=== PATIENT | female | born 1985 | race Caucasian/White ===

== ENCOUNTER 2017-05-28 08:49 | Inpatient (IN) | payer OTHER ==
[~2017-05-28] VITALS: Ht 165.1 cm; Wt 93.5 kg
[2017-05-28] MEDS ORDERED: LACTATED RINGER'S 1000ML 1,000 ML IV PRN (09:24)
[2017-05-28] MEDS ORDERED: LACTATED RINGER'S 1000ML 1,000 ML IV SCH ×2 (09:24→10:49)
--- NOTE | 2017-05-28 09:28 | Progress Note ---
Progress Note Date of Service May 28, 2017. Progress Note Admit Note 31 F P1001 at 40.3 weeks admitted in active labor. Cervix is 5-6/80/-2/soft/ posterior/intact/vertex. GBS is negative. FHT CAt 1. Will admit in labor patient requesting epidural.
[2017-05-28] MEDS ORDERED: EpHEDrine SULFATE INJ 50 MG/ML AMP ONE (09:33)
[2017-05-28] MEDS ORDERED: BUPIVACAINE 0.25% 30 ML VIAL ONE (09:33)
[2017-05-28] MEDS ORDERED: FENTANYL CITRATE INJ 50 MCG/1 ML 2 ML VIAL ONE (09:34)
[2017-05-28] MEDS ORDERED: FENTANYL 2MCG/ML ROPIV 1.25MG/ML 100ML BAG EPI ONE (09:35)
[2017-05-28] MEDS ORDERED: PRENCAP38 PO (09:53)
[2017-05-28] MEDS ORDERED: AMOX500C3 PO (09:54)
[2017-05-28 09:57] VITALS: Ht 165.1 cm; Wt 93.5 kg
[2017-05-28 10:18] LABS: HEMATOCRIT 37.5 % (37-47); MEAN CELL VOLUME 82.6 fL (80-100); MEAN CORPUSCULAR HEMOGLOBIN 28.6 pg (25-34); MEAN CORPUSCULAR HGB CONC 34.7 g/dl (32-36); MEAN PLATELET VOLUME 11.7 fL (7.4-10.4); PLATELET COUNT 156 K/uL (130-400); RED CELL DISTRIBUTION WIDTH CV 13.8 % (11.5-14.5); RED CELL DISTRIBUTION WIDTH SD 41.6 fL (36.4-46.3); WHITE BLOOD COUNT 13.15 K/uL (4.8-10.8)
[2017-05-28] MEDS ORDERED: OXYTOCIN 30 UNITS/500ML NSS IV ONE (10:34)
--- NOTE | 2017-05-28 10:47 | Progress Note ---
Progress Note Date of Service May 28, 2017. Progress Note Delivery Summary Patient of Dr Kim. I was called to the room for imminent delivery, as Dr Kim was in the OR recovery area downstairs caring acutely for another patient. Upon my entry into the room, patient was actively pushing with the baby on the perineum. Patient laboring without epidural. After one push, the head delivered in DIA position, no nuchal was noted, then anterior shoulder followed by posterior shoulder, followed by body delivered. Baby placed on mother's abdomen , spontaneous cry was heard. Delayed cord clamping was employed, after 1 minute and no pulse in cord, cord was doubly clamped and cut. At this time, Dr Kim arrived for delivery of placenta and I left the room. EBL 100ml during my portion of delivery, please see Dr Kmi's notes for total EBL. No complications with delivery. Patient and baby tolerated well. Please see Dr Kim's notes for further information.
[2017-05-28] MEDS ORDERED: OXYTOCIN 30 UNITS/500ML NSS IV PRN (11:00)
[2017-05-28] MEDS ORDERED: MEASLES, MUMPS & RUBELLA VIRUS VIAL SQ. ONE (11:00)
[2017-05-28] MEDS ORDERED: BENZOCAINE 20% AER SPR 82.5 GM CAN EXT PRN (11:00)
[2017-05-28] MEDS ORDERED: HYDROCORTISONE ACETATE 25 MG SUPP PR PRN (11:00)
[2017-05-28] MEDS ORDERED: ACETAMINOPHEN 325 MG TAB PO PRN (11:00)
[2017-05-28] MEDS ORDERED: LANOLIN OINT EXT PRN (11:00)
[2017-05-28] MEDS ORDERED: DIPHTHERIA/TETANUS/PERTUSSIS 0.5 ML SYR/VIAL IM. ONE (11:00)
[2017-05-28] MEDS ORDERED: SUPERCREAM 0.870 % 15GM JAR EXT PRN (11:00)
--- NOTE | 2017-05-28 11:30 | Vaginal Delivery Summary ---
Vaginal Delivery Summary Delivery Note (continued) I came in to the room and baby just delivered. I delivered the placenta spontaneously and intact. No tears. Total EBL 200 ml. Final sponge and instrument count are correct. Mom and baby stable.
[2017-05-28 14:10] VITALS: BP 145/64; PULSE 73; TEMP 36.8
[2017-05-28 16:15] VITALS: BP 145/76; PULSE 67; TEMP 37; O2SAT 96
[2017-05-28] MEDS: AMOXICILLIN 500 MG CAP PO SCH (20:01)
[2017-05-28 20:30] VITALS: BP 133/72; PULSE 71; TEMP 36.9; O2SAT 97
[2017-05-28] MEDS: IBUPROFEN 600 MG TAB PO PRN (21:30)
[2017-05-28 23:45] VITALS: BP 127/74; PULSE 66; TEMP 36.9
[2017-05-29 04:15] VITALS: BP 127/81; PULSE 68; TEMP 36.4
[2017-05-29 06:50] LABS: HEMATOCRIT 36.3 % (37-47); HEMOGLOBIN 12.3 g/dL (12.0-16.0)
[2017-05-29] MEDS: IBUPROFEN 600 MG TAB PO PRN (07:35)
[2017-05-29 08:00] VITALS: BP 146/86; PULSE 71; TEMP 36.9; O2SAT 96
[2017-05-29] MEDS ORDERED: FERROUS SULFATE 325 MG TAB PO SCH (08:00)
[2017-05-29] MEDS ORDERED: PRENATAL VITAMIN TAB PO SCH (08:00)
[2017-05-29] MEDS: AMOXICILLIN 500 MG CAP PO SCH (08:01)
--- NOTE | 2017-05-29 08:43 | OB/GYN Progress Note ---
POP SINGER Progress Note Date of Service May 29, 2017. Subjective conversation w/ patient, physical exam Ambulation: ambulating normally Voiding: no voiding problems Passing Gas: Yes Diet Tolerance: Regular Diet Lochia: Moderate Feeding Type: Breast Feeding Review of Systems Constitutional: No fever, No chills, No sweats, No weight loss, No weakness, No fatigue, No problem reported Respiratory: No cough, No sputum, No wheezing, No shortness of breath, No dyspnea on exertion, No dyspnea at rest, No hemoptysis, No problem reported Cardiac: No chest pain, No orthopnea, No PND, No edema, No claudication, No palpitations, No problem reported Breast: No see HPI, No breast lump, No change in shape, No nipple discharge, No breast pain, No problem reported Abdomen: No pain, No nausea, No vomiting, No diarrhea, No constipation, No GI bleeding, No problem reported Female : No see HPI, No dysuria, No urinary frequency, No hematuria, No incontinence, No abnormal vaginal bleeding, No vaginal discharge, No problem reported Objective Vital Signs Date Time Temp Pulse Resp B/P (MAP) Pulse Ox O2 Delivery O2 Flow Rate FiO2 05/29/17 08:00 36.9 71 18 146/86 (106) 96 Room Air 05/29/17 07:20 Room Air 05/29/17 04:15 36.4 68 18 127/81 (96) Room Air 05/28/17 23:45 36.9 66 18 127/74 (91) Room Air 05/28/17 23:45 Room Air 05/28/17 20:30 36.9 71 18 133/72 (92) 97 Room Air 05/28/17 16:15 37.0 67 16 145/76 (99) 96 Room Air 05/28/17 16:15 96 Room Air 05/28/17 14:10 Room Air 05/28/17 14:10 36.8 73 20 145/64 (91) Physical Exam General Appearance: WELL-APPEARING, WD/WN, NO APPARENT DISTRESS Respiratory/Chest: chest non-tender, lungs clear, normal breath sounds Cardiovascular: regular rate, rhythm, no edema, no gallop Abdomen: normal bowel sounds, non tender, soft Fundus: Firm Incision Description: Erythema Extremities: normal range of motion, non-tender, normal inspection Laboratory Results Last 24 Hours Test 05/28/17 10:04 05/29/17 06:31 White Blood Count 13.15 K/uL Red Blood Count 4.54 M/uL Hemoglobin 13.0 g/dL 12.3 g/dL Hematocrit 37.5 % 36.3 % Mean Corpuscular Volume 82.6 fL Mean Corpuscular Hemoglobin 28.6 pg Mean Corpuscular Hemoglobin Concent 34.7 g/dl RDW Standard Deviation 41.6 fL RDW Coefficient of Variation 13.8 % Platelet Count 156 K/uL Mean Platelet Volume 11.7 fL Assessment and Plan Day Number: 1 Continue Routine Care: PPD #1 pt doing well no complaints pt wishes to be disch today disch ordered
[2017-05-29 09:35] VITALS: BP 122/76
[2017-05-29] MEDS ORDERED: FRRS300 PO (10:16)
[2017-05-29] MEDS ORDERED: MTR600X PO (10:16)
--- NOTE | 2017-05-29 10:18 | Discharge Instructions ---
Discharge Instructions Date of Service May 29, 2017. Admission Reason for Admission: Labor Check Discharge Discharge Diagnosis / Problem: Discharge Goals Goal(s): Routine recovery after delivery Activity Recommendations Activity Limitations: as noted below ACTIVITY RECOMMENDATIONS: * Gradual return to full activity over the next 2-3 weeks. * No lifting - nothing heavier than baby over the next 2-3 weeks. * Do not engage in vigorous exercise, sexual activity or sports until cleared by your physician. * Do not drive or operate any motorized equipment until cleared by your physician. * You may shower/bathe daily. BREAST CARE: If you are not breast feeding: * Wear a supportive bra 24 hours a day for one to two weeks. * Avoid stimulating your breasts and nipples as much as possible during the first few weeks after delivery. * When taking a shower, have the warm water hit your back, not breasts. * When your breasts feel full, apply ice packs. Usually three to four times a day helps ease the discomfort. * Take a mild pain medication (Tylenol/Motrin) when you are uncomfortable. If breast feeding: * Use breast milk to lubricate nipples. Lansinoh cream may be used for sore nipples. You do not need to remove cream prior to breast feeding. If using a different brand of cream, check the label for directions regarding removal of cream prior to nursing. * Wear a supportive bra. * If having problems with breasts or breast feeding, call a sales and service consultant or your health care provider. EPISIOTOMY CARE: After delivery, if you have an episiotomy (stitches), the following steps will ease discomfort and aid healing. * For the first 24 hours after delivery, place ice packs next to your episiotomy to help reduce swelling. * After the first 24 hour-period, sitz baths, either portable or in the tub, are suggested. A shower with a shower arm sprayed over the episiotomy may be comforting. * Jovana care should be done after each voiding and bowel movement. Squirt warm water from a plastic bottle over the perineum (region of the body between the anus and urinary opening) and pat dry. * Use Dermoplast to ease discomfort. Shake container. Foster directly over the episiotomy. * Place a Tucks on a clean sanitary pad next to your episiotomy. OVER THE COUNTER MEDICATION: * For discomfort or pain, you may use Acetaminophen (Tylenol), Ibuprofen (Advil ), or Naproxen (Aleve) following the package directions. * For constipation you may use Colace following the package directions. SPECIAL CARE INSTRUCTIONS: When you are discharged from the hospital, it is important for you to follow the instructions listed below: * During the first week at home, you should be able to care for yourself and your baby. In addition, the usual light household activities are encouraged. * Limit your activities to the way you feel. Do not try to clean the house or move furniture. Be sensible. * If you actively engage in sports and have done so up until the time of your delivery, you may resume these activities as soon as you feel able. This may take up to one month or even longer. Use good judgment. * Continue to take your vitamins for at least six weeks after the of your baby. * Your diet need not be limited unless you were on a special diet before your delivery. Breast-feeding mothers need around 2500 calories per day and at least 64-80 ounces of fluid per day (8 to 10 glasses). * You should eat foods from the four major food groups. Crash diets or fad diets are to be avoided. Eating lean meats, fresh fruits and vegetables, low-fat dairy products, high fiber foods and a regular exercise program, will help you get back to your pre- weight without putting your health at risk. * Constipation is sometimes a problem after delivery. Take a mild laxative as needed. If breast feeding, Milk of Magnesia is acceptable to use. You may use a suppository or Fleets enema if no episiotomy. * A daily shower or tub bath is suggested. Be sure to thoroughly and gently dry the perineum. * A bloody vaginal discharge will usually continue until around four weeks post . A small amount of bleeding may continue for as long as six weeks. Vaginal discharge changes from the bright red bleeding after delivery to pink then brownish and finally yellowish-pink before becoming white and disappearing. * Bleeding may increase with activity. Your first period may come in 4-8 weeks. If you are breast feeding, your period may be delayed even longer. * Shindler (sex) can begin whenever both you and your partner feel comfortable and do not have any form of genital infection. It is recommended that you wait until after your return appointment and discuss with your physician. If you have questions, please talk to your health care practitioner. A condom should be used to prevent infection and . * Foreplay, gentle intercourse and lubrication is very important the first several times to prevent pain. A water-based lubricant such as K-Y jelly or Astroglide may be used. * Tampons may be used six weeks after delivery. * Douching should be avoided for 6 weeks after delivery. * If you have RH negative blood and your baby is RH positive, you will receive RHOGAM by injection prior to discharge. The nurse will give you a card to keep with you that has the date and place that you received RHOGAM after delivery. * During your care, you had a Rubella screen done to check for the presence of rubella antibodies in your blood. If your test was negative, you will receive a Rubella vaccine prior to discharge. This vaccine may cause a fever, soreness at the injection site and flu-like symptoms. If these symptoms persist, notify your health care practitioner. is not advised for three months after a Rubella vaccine. There is a higher chance of having a baby with defects if conceived within three months of getting the vaccine. * If you were discharged 24 hours from delivery or before 48 hours: Visiting nurses will come to your home 48 hours after discharge to assess you and your baby. The visiting nurse will meet with you while you are in the hospital to arrange a time and get directions to your home. * Verbalizes understanding of car seat law as reviewed with patient nursing. * Car Seat hand-out given and reviewed with patient by nursing. * Shaken baby information reviewed with patient by nursing. Call you doctor if: * Heavy bleeding (saturating several pads an hour) or passing clots the size of your fist. * A fever >101 degrees F (38.3 degrees C) on two occasions four hours apart and/or chills. * Unusual pain in the pelvic or vaginal areas. * "Baby Blues" lasting longer than two weeks. If you have any questions or concerns, call your health care practitioner at . FOLLOW-UP VISIT: * Please call the office at to schedule a 6 week examination. It is important you keep this appointment. * It is important for you to make arrangements for either yearly or twice yearly check-ups thereafter. . Current Hospital Diet Patient's current hospital diet: Regular OB Diet Discharge Diet Recommended Diet: Regular Diet Pending Studies Studies pending at discharge: no Medical Emergencies . Who to Call and When: Medical Emergencies: If at any time you feel your situation is an emergency, please call 911 immediately. . Non-Emergent Contact Non-Emergency issues call your: Specialist . . "Provider Documentation" section prepared by Migue Jensen. .
[2017-05-29 11:20] VITALS: BP_DIAS 76; PULSE 71; TEMP 36.9
== END 2017-05-29 12:38 | disposition home or self-care (01) | DRG 775 ==
LOC: C.LD 08:49 → C.OPB 08:49 → C.LD 09:27 → C.OBG 16:25
PROVIDERS: ADMIT Obstetrics & Gynecology; ATTEND Obstetrics & Gynecology
PROC: 10E0XZZ Delivery of Products of Conception, External Approach (ICD-10-PCS; principal; 2017-05-28)
DX: O80 Encounter for full-term uncomplicated delivery (principal); Z3A.40 40 weeks gestation of pregnancy; Z37.0 Single live birth

== ENCOUNTER 2021-10-01 06:19 | Inpatient (IN) ==
[2021-10-01] MEDS ORDERED: LACTATED RINGER'S 1,000 ML IV PRN (06:39)
[2021-10-01] MEDS ORDERED: OXYTOCIN 30 UNITS/500 ML BAG IV PRN ×2 (06:39→08:58)
[2021-10-01] MEDS ORDERED: BUPIVACAINE 0.25% 30 ML VIAL ONE (07:16)
[2021-10-01] MEDS ORDERED: SODIUM CHLORIDE 0.9% INJ 10 ML VIAL ONE (07:16)
[2021-10-01] MEDS ORDERED: LIDOCAINE 2%/EPINEPHRINE 1:200,000 20 ML SDV ONE (07:16)
[2021-10-01] MEDS ORDERED: ePHEDrine sulfate 50 MG/ML AMP ONE (07:16)
[2021-10-01] MEDS ORDERED: fentaNYL citrate 100 MCG/2 ML VIAL ONE (07:16)
--- NOTE | 2021-10-01 07:16 | History & Physical Report ---
Date of Service October 01, 2021 Assessment & Plan (1) Active labor at term: Plan: 35 yo at 40.2 wks, presenting in active labor, VSS Afebrile GBS negative FHR reassuring COVID testing pending Admit, moitor, labs, epidural if able Anticipate (2) AMA (advanced maternal age) multigravida 35+: (3) Rh negative status during : (4) Obesity affecting in third trimester, antepartum: Admission and Anticipated Discharge Date Admission Date: October 01, 2021 History of Present Illness Primary Care Provider: Blayne Adrian DO Patient is a 35 yo at 40.2 who started to have ctxs around 3:30 am and got closer and painful. She presented to L&D in active labor and asking for epidural. 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 h/o STD's, no h/o HSV/ Chlamydia/ GC Review of Systems as per Subjective / HPI Physical Exam Constitutional: WD/WN, vitals as above well developed, well nourished, + acute distress (with contractions) and + obese Gastrointestinal (Abdomen): normal bowel sounds, soft, nontender, no hepatosplenomegaly (Gravid) Genitourinary: normal external appearance OB Exam Abdomen: + vertex Manual OB Exam: + cervical dilation 8 cm, + cervical effacement 90% and + station 0 OB Exam Monitor Tracing: + external uterine monitor used and + category I bulging bag+ Results & Data ([facility]) Vital Signs (Past 12 Hours) Vital Signs Pulse BP 10/01/21 06:31 71 135/72
[2021-10-01] MEDS ORDERED: fentaNYL 2MCG/ML ROPIVACAINE 1.25MG/ML 100 ML BAG EPI ONE (07:17)
[2021-10-01 07:58] LABS: Hematocrit (blood only) 32.6 % (34.1-44.9); Hemoglobin 10.6 g/dl (12.0-16.0); White Blood Count 11.06 K/ul (4.8-10.8)
[2021-10-01 08:24] LABS: Mean Corpuscular Hemoglobin 25.7 pg (25.0-34.0); Mean Corpuscular Hgb Conc 32.5 g/dL (32.0-36.0); Mean Corpuscular Volume 78.9 fL (80.0-100.0); Mean Platelet Volume 11.6 fL (9.4-12.3); Platelet Count 129 K/uL (130-400); Platelet Estimate Decreased (Normal); RDW Coefficient of Variation 13.2 % (11.5-14.5); RDW Standard Deviation 37.6 fL (36.4-46.3); Red Blood Count 4.13 M/uL (3.93-5.22)
[2021-10-01] MEDS ORDERED: LIDOCAINE 1% LOCAL 20 ML VIAL ONE ×2 (08:24→08:31)
[2021-10-01] MEDS ORDERED: BENZOCAINE 20% AER SPR 82.5 GM CAN EXT PRN (08:58)
[2021-10-01] MEDS ORDERED: MEASLES, MUMPS & RUBELLA VIRUS VIAL SQ ONE (08:58)
[2021-10-01] MEDS ORDERED: ACETAMINOPHEN 325 MG TAB PO PRN (08:58)
[2021-10-01] MEDS ORDERED: HYDROCORTISONE ACETATE 25 MG SUPP PR PRN (08:58)
[2021-10-01] MEDS ORDERED: DIPHTHERIA/TETANUS/PERTUSSIS 0.5 ML SYR/VIAL IM ONE (08:58)
[2021-10-01] MEDS ORDERED: bisacodyL 10 MG SUPP PR PRN (08:58)
--- NOTE | 2021-10-01 09:05 | Delivery Summary ---
Vaginal Delivery Summary Date of Service October 01, 2021 Vaginal Delivery Summary Patient was found to be fully dilated and desired to push. She pushed through 2 contractions and delivered the head that difficulty. The shoulders were delivered with minimal traction and the baby was handed off to the mother by mouth and nose were suctioned, the cord was clamped times and cut at 1 minute delay. Vagina and perineum were checked for lacerations. There was a small second- degree perineal laceration was confirmed with rectal exam and excellent sphincter tone was noted. Patient had short perineum and the laceration was closed to her anal orifice. Allis clamps were used to grasped more tissue/muscles around perineal body to reinforce anal sphincter. [id number] stitches were placed around the clamps x2. The gloves were changed and the rest of the vagina mucosa bulbocavernous muscles were and skin were repaired with 2-0 Vicryl. And it was static. The rest of the vagina and labia were intact. The placenta was found to be the vagina, delivered spontaneously as intact and complete. Uterus was explored and found to be empty, the lower segment was cleared of all clots and debris's. EBL was 200 mL and the fundus was firm. There was repeated, no sutures were felt and excellent sphincter tone was noted. Mom and baby tolerated procedure well. The sponge, needle, and instrument count was correct x2. Baby was a viable female , Apgars were 8/9 and weight is pending. Lung complications happened and I was present during whole procedure.
[2021-10-01] MEDS: IBUPROFEN 600 MG TAB PO PRN ×2 (12:14→18:46)
[2021-10-01] MEDS: DOCUSATE SODIUM 100 MG CAP PO SCH (20:37)
[2021-10-02] MEDS: IBUPROFEN 600 MG TAB PO PRN (04:59)
[2021-10-02 06:57] LABS: Hematocrit (blood only) 31.6 % (34.1-44.9); Hemoglobin 10.2 g/dl (12.0-16.0); Mean Corpuscular Hemoglobin 26.2 pg (25.0-34.0); Mean Corpuscular Hgb Conc 32.3 g/dL (32.0-36.0); Mean Corpuscular Volume 81.2 fL (80.0-100.0); Mean Platelet Volume 11.2 fL (9.4-12.3); Platelet Count 150 K/uL (130-400); RDW Coefficient of Variation 13.3 % (11.5-14.5); RDW Standard Deviation 38.7 fL (36.4-46.3); Red Blood Count 3.89 M/uL (3.93-5.22)
[2021-10-02] MEDS ORDERED: FERROUS SULFATE 325 MG TAB PO SCH (08:00)
[2021-10-02] MEDS ORDERED: PRENATAL VITAMIN 1 TAB PO SCH (08:00)
[2021-10-02] MEDS: DOCUSATE SODIUM 100 MG CAP PO SCH (08:39)
--- NOTE | 2021-10-02 10:02 | Obstetrical Progress Note ---
Date of Service October 02, 2021 Assessment & Plan (1) Normal course: PPD #1 Pt doing well No complaints pt wishes to be discharged home Results & Data ([facility]) Vital Signs (Past 12 Hours) Vital Signs Temp Pulse Resp BP Pulse Ox 10/02/21 08:59 138/79 10/02/21 07:40 37 C 67 18 143/81 H 97 10/02/21 04:50 36.5 C 62 18 133/79 10/02/21 00:50 36.8 C 62 18 137/82
[2021-10-02] MEDS ORDERED: bisacodyL 5 MG TABEC PO SCH (20:00)
== END 2021-10-02 14:20 | disposition home or self-care (01) | DRG 807 ==
LOC: OPB 06:19 → 4S1 06:23 → 4E2 11:52
DX: Z31.82 Encounter for Rh incompatibility status; O99.214 Obesity complicating childbirth; Z37.0 Single live birth; Z3A.40 40 weeks gestation of pregnancy; O48.0 Post-term pregnancy; O70.1 Second degree perineal laceration during delivery